=== PATIENT | male | born 1950 | race Caucasian/White ===

== ENCOUNTER → 2019-12-29 16:05 | Outpatient (CLI) | payer MEDICARE, SELFPAY ==
[2019-12-31 12:11] LABS: PSA, Free 1.13 ng/mL; Prostate Specific Ag 3.9 ng/mL (0.0-4.0)
== END ==
PROVIDERS: Visit Provider Urology
DX: R97.20 Elevated prostate specific antigen [PSA] (principal)
CPT/HCPCS: 36415; 84153; 84154

== ENCOUNTER → 2020-12-31 13:54 | Outpatient (CLI) | payer MEDICARE, SELFPAY ==
[2021-01-01 10:58] LABS: PSA, Free 0.71 ng/mL; Prostate Specific Ag 2.8 ng/mL (0.0-4.0)
== END ==
PROVIDERS: Visit Provider Urology
DX: R97.20 Elevated prostate specific antigen [PSA] (principal)
CPT/HCPCS: 36415; 84153; 84154

== ENCOUNTER → 2022-01-10 12:06 | Outpatient (CLI) | payer MEDICARE, SELFPAY ==
[2022-01-11 08:56] LABS: PSA, Free 1.37 ng/mL; Prostate Specific Ag 3.8 ng/mL (0.0-4.0)
== END ==
PROVIDERS: PCP Internal Medicine; Visit Provider Urology
DX: R97.20 Elevated prostate specific antigen [PSA] (principal)
CPT/HCPCS: 36415; 84153; 84154